=== PATIENT | female | born 1965 | race Caucasian/White ===

== ENCOUNTER → 2019-03-09 | Outpatient (CLI) | payer OTHER ==
--- NOTE | 2019-03-10 15:51 | RAD ---
EXAM: DIGITAL SCREEN BILAT W/CAD HISTORY: routine screening evaluation. COMPARISON: No prior imaging is available for comparison Bilateral full field craniocaudal and mediolateral oblique images were obtained using digital technique. This study was interpreted with the benefit of Computerized Aided Detection (CAD). Breast Density: The breast parenchyma is heterogeneously dense, which could reduce sensitivity of mammography. Breast parenchyma level C. FINDINGS: Benign calcifications are present. The parenchymal pattern appears stable. No suspicious masses, microcalcifications or architectural distortion is present to suggest malignancy in either breast. The visualized axillae are unremarkable. IMPRESSION: No mammographic evidence of malignancy. BI-RADS CATEGORY: 2 BENIGN FINDING(S) RECOMMENDED FOLLOW-UP: 12M 12 MONTH FOLLOW-UP Annual screening mammography is recommended, unless clinically indicated sooner based on symptoms or change in physical exam. PQRS compliance statement: Patient information was entered into a reminder system with a target due date for the next mammogram. Mammography is a sensitive method for finding small breast cancers, but it does not detect them all and is not a substitute for careful clinical examination. A negative mammogram does not negate a clinically suspicious finding and should not result in delay in biopsying a clinically suspicious abnormality. "Our facility is accredited by the [employer] Mammography Program." MTDD
== END | disposition home or self-care (01) ==
LOC: MAMMO 10:59
PROVIDERS: ATTEND Family Medicine
DX: Z12.31 Encounter for screening mammogram for malignant neoplasm of breast (principal); N64.89 Other specified disorders of breast
CPT/HCPCS: 77067

== ENCOUNTER → 2019-05-03 | Outpatient (CLI) | payer OTHER ==
--- NOTE | 2019-05-03 15:57 | RAD ---
CT of the chest without contrast. Low dose lung cancer screening protocol. INDICATION: 33+ year pack history of smoking. COMPARISON STUDY: None TECHNIQUE: Multidetector CT imaging of the chest was performed without the administration of contrast using a low-dose lung cancer screening protocol. FINDINGS: There are diffuse centrilobular groundglass nodular opacities seen throughout the bilateral lungs. Differential considerations in a smoker include respiratory bronchiolitis, hypersensitivity pneumonitis, or the appropriate clinical setting an acute infectious process. Mild bronchiectasis, particularly in the lower lobes is seen. Subpleural blebs are noted apically. There is a more solid-appearing 3 mm noncalcified nodule in the superior aspect of the right lower lobe. Heart size is normal. No pericardial effusion is identified. Limited noncontrast enhanced evaluation of the mediastinum demonstrates no pathologically enlarged lymphadenopathy. Scattered small lymph nodes noted. The liver appears enlarged. Liver is diffusely low in attenuation suggesting hepatic steatosis. Limited evaluation of the upper abdomen is otherwise unremarkable. No acute osseous changes are seen. IMPRESSION: 1. Diffuse, centrilobular groundglass nodular opacities seen throughout the bilateral lungs. Differential considerations in a smoker include respiratory bronchiolitis, hypersensitivity pneumonitis, or the appropriate clinical setting an acute infectious process. 2. 3 mm more solid-appearing nodule, superior aspect right lower lobe. 3. LUNG Rads 2-S . Consider a follow-up, high-resolution CT scan with inspiratory and expiratory imaging for evaluation of possible interstitial lung disease. CT DOSING PQRS STATEMENT: One or more of the following individualized dose reduction techniques were utilized for this examination: 1. Automated exposure control 2. Adjustment of the mA and/or kV according to patient size 3. Use of iterative reconstruction technique Electronically signed by: Lamont Watt MD (05/03/2019 3:54 PM) [id number]
== END | disposition home or self-care (01) ==
LOC: CT 12:34
PROVIDERS: ATTEND Family Medicine
DX: Z12.2 Encounter for screening for malignant neoplasm of respiratory organs (principal); J47.9 Bronchiectasis, uncomplicated; R91.1 Solitary pulmonary nodule; R16.0 Hepatomegaly, not elsewhere classified; F17.200 Nicotine dependence, unspecified, uncomplicated; Z88.8 Allergy status to other drugs, medicaments and biological substances
CPT/HCPCS: G0297

== ENCOUNTER 2020-11-25 11:46 | Emergency (ER) | payer MEDICAID, OTHER ==
[~2020-11-25] VITALS: Ht 175.3 cm; Wt 83.0 kg
[2020-11-25 11:55] VITALS: BP 168/90
--- NOTE | 2020-11-25 12:33 | EKG ---
[address] [address] Test Date: 2020-11-25 Test Time: 12:05:53 Pat Name: BOLIVAR MUSA Department: Room: Gender: F Hl7 Interface Developer: TABATHA : 1965 Requested By: FRANCOIS PEREZ Order Number: [id number] Reading MD: Measurements Intervals [place] Rate: 107 P: 67 [place]: 156 QRS: 62 QRSD: 98 T: 48 QT: 350 QTc: 473 Interpretive Statements SINUS TACHYCARDIA OTHERWISE NORMAL ECG RI6.02 No previous ECG available for comparison
[2020-11-25 13:12] LABS: BASO # 0.1 x10^3/uL (0.0-0.2); BASO % 1 % (0-3); EOS # 0.2 x10^3/uL (0.0-0.7); EOS % 2 % (0-3); HEMATOCRIT 43.8 % (36.0-47.0); HEMOGLOBIN 14.9 g/dL (12.0-15.5); LYMPH # 1.9 x10^3/uL (1.0-4.8); LYMPH % 24 % (24-48); MEAN CORPUSCULAR HEMOGLOBIN 32 pg (25-35); MEAN CORPUSCULAR HGB CONC 34 g/dL (31-37); MEAN CORPUSCULAR VOLUME 93 fL (79-100); MONO # 0.5 x10^3/uL (0.0-1.1); MONO % 6 % (0-9); NEUT # 5.5 x10^3uL (1.8-7.7); NEUT % 68 % (31-73); PLATELET COUNT 232 x10^3/uL (140-400); RED BLOOD COUNT 4.71 x10^6/uL (3.50-5.40); WHITE BLOOD COUNT 8.1 x10^3/uL (4.0-11.0)
[2020-11-25 13:25] LABS: CALCIUM 9.6 mg/dL (8.5-10.1); CREATININE 0.8 mg/dL (0.6-1.0); GFR 73.9; POTASSIUM 3.2 mmol/L (3.5-5.1)
[2020-11-25 13:31] LABS: ALBUMIN 4.1 g/dL (3.4-5.0); ALBUMIN/GLOBULIN RATIO 1.1 (1.0-1.7); MAGNESIUM 1.4 mg/dL (1.8-2.4); TOTAL BILIRUBIN 0.4 mg/dL (0.2-1.0); TOTAL PROTEIN 7.9 g/dL (6.4-8.2)
--- NOTE | 2020-11-25 13:49 | RAD ---
Ultrasound venous system of the left lower extremity 11/25/2020. Reason for exam: Calf pain. Color Doppler and spectral waveform analysis was performed along with real-time grayscale technique. Deep veins of the left lower extremity show normal compressibility and normal Doppler flow and augmen tation of flow extending from the common femoral segment to the popliteal segment. The visualized marlen f veins also appear normal. IMPRESSION: No evidence of DVT. Electronically signed by: Jim Sood Jr., MD (11/25/2020 1:46 PM) [id number]
[2020-11-25] MEDS: IOHEXOL 300 MG/ML 75 ML VIAL. IV ONE (14:07)
--- NOTE | 2020-11-25 14:30 | RAD ---
CT ABDOMEN+PELVIS W dated 11/25/2020 1:56 PM Indication:Reason: EIPGASTRIC DISCOMFORT S/P GALLBLADDER SURGERY 10/2020 / Spl. Instructions: GAVE OMN I 300 75ML IV / History: Comparison: No comparison is available. Technique: CT images were made through the abdomen and pelvis using an infusion of 75 mL Omnipaque 30 0. No oral contrast was given. One or more of the following individualized dose reduction techniques were utilized for this examinat ion: 1. Automated exposure control 2. Adjustment of the mA and/or kV according to patient size 3. Use of iterative reconstruction technique Findings: The lung bases are clear. There may be early fatty infiltration of the liver. No focal liver lesion i s seen. Clips in the gallbladder fossa are consistent with prior cholecystectomy. There is no signifi cant fluid or hematoma in this region. The spleen appears normal. Both kidneys enhance with contrast. No mass or obstruction is seen. The adrenal glands are not enlarged. The pancreas appears normal. Th e biliary tree does not appear dilated. No retroperitoneal or mesenteric adenopathy is seen. There is no apparent abdominal mass or clearcut inflammatory process. Evaluation of the GI tract is slightly limited by lack of distention and lack of oral contrast. Images through the pelvis show no apparent abnormality of the distal ureters or bladder. No pelvic or inguinal adenopathy is seen. There is no apparent pelvic mass or inflammatory process. A normal appe ndix is seen arising from the cecum. IMPRESSION: There are changes of cholecystectomy. No acute abnormality is identified. Electronically signed by: Jim Sood Jr., MD (11/25/2020 2:28 PM) [id number]
--- NOTE | 2020-11-25 14:50 | PHYS DOC ---
Past History Past Medical History: COPD, Diabetes, High Cholesterol, Hypertension Past Surgical History: Hysterectomy Additional Smoking Information: /2 PPD Alcohol Use: None Adult General Chief Complaint Chief Complaint: HYPERTENSION HPI HPI Patient is a 55-year-old female presents emergency department complaining of off-and-on headaches for the past week, rates a current headache of 3/10 on a 1- 10 pain scale. Patient also complains of left euceda pain but denies injury to her euceda area. Patient reports feeling a knot in her epigastric area since having gallbladder surgery 4 weeks ago at [facility]. Patient denies telling any of her healthcare providers of her this not sensation since her luciana manuel. Patient states the main concern for coming to the ER today when she noticed her blood pressure was high this morning stating it was about 180/110. Patient denies chest pain, shortness of breath, headaches, visual changes, nausea, vomiting, diarrhea, constipation. Patient denies any urinary tract infection signs and symptoms. Patient denies visual changes, dizziness, patient denies any other physical complaints or physical concerns. Review of Systems Review of Systems 14 body systems of review of systems have been reviewed. See HPI for pertinent positives and negative responses, otherwise all other systems are negative, nonpertinent or noncontributory. Current Medications Current Medications Current Medications Medications (Trade) Dose Ordered Sig/Carol Start Time Stop Time Status Last Admin Dose Admin Iohexol (Omnipaque 300 Mg/ml) 75 ml 1X ONCE 11/25/20 13:15 11/25/20 13:16 DC 11/25/20 14:07 75 ML Magnesium Chloride (Mag Delay) 64 mg DAILY 11/26/20 09:00 Potassium Chloride (Klor-Con) 40 meq 1X ONCE 11/25/20 14:15 11/25/20 14:16 DC Allergies Allergies Allergies Coded Allergies Type Severity Reaction Last Updated Verified hydrocodone Allergy Unknown 11/25/20 Yes naproxen Allergy Unknown 11/25/20 Yes Physical Exam Physical Exam Constitutional: Well developed, well nourished, no acute distress, non-toxic appearance. 55-year-old female in no apparent distress. HENT: Normocephalic, atraumatic, bilateral external ears normal, oropharynx moist, no oral exudates, nose normal. Oropharynx moist, pink, no deep tissue infectious process appreciated, no laryngeal edema appreciated, no lymphaden opathy of the head or neck appreciated, bilateral TMs within normal limits. Eyes: PERRLA, EOMI, conjunctiva normal, no discharge. Neck: Normal range of motion, no tenderness, supple, no stridor. No meningismus, no nuchal rigidity. Cardiovascular:Heart rate regular rhythm, no murmur, heart sounds S1-S2 to auscultation. Lungs & Thorax: Bilateral breath sounds clear to auscultation, no adventitious lung sounds appreciated. Abdomen: Bowel sounds normal, soft, no tenderness, no masses, no pulsatile masses. No masses, no "knot "appreciated at the epigastric area. No pain elicited with abdominal exam. No areas of ecchymosis appreciated. Skin: Warm, dry, no erythema, no rash. Back: No tenderness, no CVA tenderness. Extremities: No tenderness, no cyanosis, no clubbing, ROM intact, no edema. Pain to palpation along midshaft anterior euceda of the left, no bruising,no swelling, no deformity appreciated, no ecchymosis appreciated, distal cap refill less than 2 seconds, 2+ dorsalis pedis/posterior tibial pulse. No pain elicited with palpation along calf area however when passively extended, patient has positive Homans' sign. Neurologic: Alert and oriented X 3, normal motor function, normal sensory func tion, no focal deficits noted. Psychologic: Affect normal, judgement normal, mood normal. Current Patient Data Vital Signs Vital Signs Date Time Temp Pulse Resp B/P (MAP) Pulse Ox O2 Delivery O2 Flow Rate FiO2 11/25/20 11:55 97.7 102 18 168/90 (116) 98 Room Air Lab Results Laboratory Tests Test 11/25/20 12:50 White Blood Count 8.1 x10^3/uL (4.0-11.0) Red Blood Count 4.71 x10^6/uL (3.50-5.40) Hemoglobin 14.9 g/dL (12.0-15.5) Hematocrit 43.8 % (36.0-47.0) Mean Corpuscular Volume 93 fL (79-100) Mean Corpuscular Hemoglobin 32 pg (25-35) Mean Corpuscular Hemoglobin Concent 34 g/dL (31-37) Red Cell Distribution Width 14.0 % (11.5-14.5) Platelet Count 232 x10^3/uL (140-400) Neutrophils (%) (Auto) 68 % (31-73) Lymphocytes (%) (Auto) 24 % (24-48) Monocytes (%) (Auto) 6 % (0-9) Eosinophils (%) (Auto) 2 % (0-3) Basophils (%) (Auto) 1 % (0-3) Neutrophils # (Auto) 5.5 x10^3uL (1.8-7.7) Lymphocytes # (Auto) 1.9 x10^3/uL (1.0-4.8) Monocytes # (Auto) 0.5 x10^3/uL (0.0-1.1) Eosinophils # (Auto) 0.2 x10^3/uL (0.0-0.7) Basophils # (Auto) 0.1 x10^3/uL (0.0-0.2) Sodium Level 141 mmol/L (136-145) Potassium Level 3.2 mmol/L (3.5-5.1) L Chloride Level 101 mmol/L (98-107) Carbon Dioxide Level 26 mmol/L (21-32) Anion Gap 14 (6-14) Blood Urea Nitrogen 17 mg/dL (7-20) Creatinine 0.8 mg/dL (0.6-1.0) Estimated GFR (Cockcroft-Gault) 73.9 BUN/Creatinine Ratio 21 (6-20) H Glucose Level 124 mg/dL (70-99) H Calcium Level 9.6 mg/dL (8.5-10.1) Magnesium Level 1.4 mg/dL (1.8-2.4) L Total Bilirubin 0.4 mg/dL (0.2-1.0) Aspartate Amino Transferase (AST) 22 U/L (15-37) Alanine Aminotransferase (ALT) 46 U/L (14-59) Alkaline Phosphatase 81 U/L (46-116) Troponin I Quantitative < 0.017 ng/mL (0-0.055) Total Protein 7.9 g/dL (6.4-8.2) Albumin 4.1 g/dL (3.4-5.0) Albumin/Globulin Ratio 1.1 (1.0-1.7) Lipase 109 U/L (73-393) EKG EKG EKG performed at 1205 by house respiratory therapy staff, heart rate 107 bpm, sinus tachycardia without other ectopy, GA interval 0.156, QTc interval 0.473, no acute ischemia, no ACS, no STEMI appreciated, EKG interpreted by ED attending physician Dr. Rose. Radiology/Procedures Radiology/Procedures PATIENT: BOLIVAR MUSA ACCOUNT: [id number] : 1965 LOCATION: ER AGE: 55 SEX: F EXAM STATUS: REG ER ORD. PHYSICIAN: FRANCOIS PEREZ APRN REASON: CALF PAIN, POSITIVE HOMANS SIGN LEFT PROCEDURE: VENOUS LOWER EXTREMITY LEFT Ultrasound venous system of the left lower extremity 11/25/2020. Reason for exam: Calf pain. Color Doppler and spectral waveform analysis was performed along with real-time grayscale technique. Deep veins of the left lower extremity show normal compressibility and normal Doppler flow and augmentation of flow extending from the common femoral segment to the popliteal segment. The visualized calf veins also appear normal. IMPRESSION: No evidence of DVT. Electronically signed by: Naseem Sood Jr., MD (11/25/2020 1:46 PM) [id number] DICTATED AND SIGNED BY: NASEEM SOOD Jr, MD DATE: 11/25/20 1346 CC: FRANCOIS PEREZ APRN; JESSICA BRAR ~MTH0 0 PATIENT: BOLIVAR MUSA ACCOUNT: [id number] : 1965 LOCATION: ER AGE: 55 SEX: F EXAM STATUS: REG ER ORD. PHYSICIAN: FRANCOIS PEREZ APRN REASON: EIPGASTRIC DISCOMFORT S/P GALLBLADDER SURGERY 10/2020 PROCEDURE: CT ABD PELV W/ IV CONTRST ONLY CT ABDOMEN+PELVIS W dated 11/25/2020 1:56 PM Indication:Reason: EIPGASTRIC DISCOMFORT S/P GALLBLADDER SURGERY 10/2020 / Spl. Instructions: GAVE OMNI 300 75ML IV / History: Comparison: No comparison is available. Technique: CT images were made through the abdomen and pelvis using an infusion of 75 mL Omnipaque 300. No oral contrast was given. One or more of the following individualized dose reduction techniques were utilized for this examination: 1. Automated exposure control 2. Adjustment of the mA and/or kV according to patient size 3. Use of iterative reconstruction technique Findings: The lung bases are clear. There may be early fatty infiltration of the liver. No focal liver lesion is seen. Clips in the gallbladder fossa are consistent with p rior cholecystectomy. There is no significant fluid or hematoma in this region. The spleen appears normal. Both kidneys enhance with contrast. No mass or obstruction is seen. The adrenal glands are not enlarged. The pancreas appears normal. The biliary tree does not appear dilated. No retroperitoneal or mesenteric adenopathy is seen. There is no apparent abdominal mass or clearcut inflammatory process. Evaluation of the GI tract is slightly limited by lack of distention and lack of oral contrast. Images through the pelvis show no apparent abnormality of the distal ureters or bladder. No pelvic or inguinal adenopathy is seen. There is no apparent pelvic mass or inflammatory process. A normal appendix is seen arising from the cecum. IMPRESSION: There are changes of cholecystectomy. No acute abnormality is identified. Electronically signed by: Naseem Sood Jr., MD (11/25/2020 2:28 PM) [id number] DICTATED AND SIGNED BY: NASEEM SOOD Jr, MD DATE: 11/25/20 1424 CC: FRANCOIS PEREZ APRN; JESSICA BRAR ~MTH0 0 Heart Score C/O Chest Pain: No Risk Factors: Risk Factors: DM, Current or recent (<one month) smoker, HTN, HLP, family history of CAD, obesity. Risk Scores: Risk Factors: DM, Current or recent (<one month) smoker, HTN, HLP, family history of CAD, obesity. Course & Med Decision Making Course & Med Decision Making Pertinent Labs and Imaging studies reviewed. (See chart for details) 55-year-old female, vital signs reviewed, presents to the emergency department concerning for elevated blood pressure, left euceda pain, not feeling and epigastric area. Physical examination was concerning for possible DVT left calf/lower extremity, otherwise unremarkable physical examination. Related to patient's epigastric sensation, will order EKG, troponin, CBC, BMP, CT abdomen pelvis with IV contrast, patient does have history of recent gallbladder surgery 4 weeks ago at [facility] EKG unremarkable, sonogram study of left lower extremity negative for DVT or other abnormalities, CT abdomen pelvis unremarkable per radiologist interpretation, labs unremarkable except for potassium low at 3.2, magnesium low at 1.4, will give potassium supplement and magnesium supplement in the ED today. Will give 600 mg ibuprofen for minor headache. Upon reevaluation of the patient, patient states she feels better since her blood pressure has normalized. Patient did not have any hypertensive episode during her ER stay. Discussed with patient to follow-up with primary care tomorrow for further evaluation of this knot sensation in her epigastric area, discussed return to ER precautions and concerns, discussed taking over-the- counter ibuprofen or Tylenol for headaches. Patient gave verbal understanding of discharge home instructions, follow-up with primary care tomorrow, return to ER precautions or concerns, was discharged home without incident. Diagnosis hypertensive episode at home resolved, left leg pain, abdominal pain of unknown etiology, headache. Dragon Disclaimer Dragon Disclaimer This electronic medical record was generated, in whole or in part, using a voice recognition dictation system. Departure Departure: Impression: Primary Impression: Hypertension Additional Impressions: Left leg pain Abdominal pain of unknown etiology Headache Disposition: 01 DC HOME SELF CARE/HOMELESS Condition: GOOD Referrals: JESSICA BRAR (PCP) Additional Instructions: Your evaluated today in the emergency department for your headache, left leg pain, abdominal discomfort, and hypertensive episode at home. Your blood pressures were normal during your ER stay today. Your EKG and cardiac lab work were normal, your lab work was normal, except for as we discussed your potassium was slightly low and your magnesium was slightly low we have discussed you starting on a One-A-Day multivitamin, we evaluated your left leg pain for a blood clot, there was no deep vein clots appreciated, I scanned your abdomen for this knot sensation in your epigastric area, there was no concerning findings. As we discussed please follow-up with Dr. Brar tomorrow for ongoing evaluation of your abdominal discomfort. You may take [id number] Tylenol or Motrin for your headaches. Please return to the emergency department for worsening symptoms or other concerns. EMERGENCY DEPARTMENT GENERAL DISCHARGE INSTRUCTIONS Thank you for coming to [facility] (ED) today and trusting us with you care. We trust that you had a positivie experience in our Emergency Department. If you wish to speak to the department management, you may call the director at . YOUR FOLLOW UP INSTRUCTIONS ARE FOLLOWS: 1. Do you have a private Doctor? If you do not have a private doctor, please ask for a resource list of physicians or clinics that may be able to assist you with follow up care. 2. The Emergency Physician has interpreted your x-rays. The X-Ray specialist will also review them. If there is a change in the findings, you will be notified in 48 hours when at all possible. 3. A lab test or culture has been done, your results will be reviewed and you will be notified if you need a change in treatment. ADDITIONAL INSTRUCTIONS AND INFORMATION: 1. Your care today has been supervised by a physician who is specially trained in emergency care. Many problems require more than one evaluation for a complete diagnosis and treatment. We recommend that you schedule your follow up appointment as recommended to ensure complete treatment of you illness or injury. If you are unable to obtain follow up care and continue to have a problem, or if your condition worsens, we recommend that you return to the ED. 2. We are not able to safely determine your condition over the phone nor are we able to give sound medical advice over the phone. For these safety reasons, if you call for medical advice we will ask you to come to the ED for further evaluation. 3. If you have any questions regarding these discharge instructions please call the ED at [phone]. SAFETY INFORMATION: In the interest of safety, wellness, and injury prevention; we encourage you to wear your sealbelt, if you smoke; quite smoking, and we encourage family to use a protective helmet for bicycling and other sporting events that present an increased risk for head injury. IF YOUR SYMPTOMS WORSEN OR NEW SYMPTOMS DEVELOP, OR YOU HAVE CONCERNS ABOUT YOUR CONDITION; OR IF YOUR CONDITION WORSENS WHILE YOU ARE WAITING FOR YOUR FOLLOW UP APPOINTMENT; EITHER CONTACT YOUR PRIMARY CARE DOCTOR, THE PHYSICIAN WHOSE NAME AND NUMBER YOU WERE GIVEN, OR RETURN TO THE ED IMMEDIATELY. Problem Qualifiers Primary Impression: Hypertension Hypertension type: unspecified Qualified Codes: I10 - Essential (primary) hypertension Additional Impressions: Headache Headache type: unspecified Headache chronicity pattern: acute headache Intractability: not intractable Qualified Codes: R51.9 - Headache, un specified FRANCOIS PEREZ SEO COORDINATOR Nov 25, 2020 14:50
[2020-11-25] MEDS ORDERED: MAGNESIUM CHLORIDE ER 64 MG TABLET.ER PO ONE (15:00)
[2020-11-25] MEDS: POTASSIUM CHLORIDE 20 MEQ TABLET.ER. PO ONE (15:03)
[2020-11-25] MEDS: MAGNESIUM CHLORIDE ER 64 MG TABLET.ER PO SCH (15:03)
[2020-11-25] MEDS: ACETAMINOPHEN 325 MG TABLET PO ONE (15:04)
== END 2020-11-25 15:21 | disposition home or self-care (01) ==
LOC: ER 11:46
DX: R51.9 Headache, unspecified (principal); I10 Essential (primary) hypertension; M79.605 Pain in left leg; J44.9 Chronic obstructive pulmonary disease, unspecified; Z88.6 Allergy status to analgesic agent; Z90.710 Acquired absence of both cervix and uterus
CPT/HCPCS: 36415; 74177; 80053; 83690; 83735; 84484; 85025; 93005; 93971; 99285; Q9967